=== PATIENT | female | born 1970 | race Caucasian/White ===

== ENCOUNTER → 2022-08-15 | Outpatient (CLI) | payer OTHER, SELFPAY ==
[2022-08-22 15:56] LABS: HPV APTIMA, High Risk Negative (Negative)
== END | disposition home or self-care (01) ==
PROVIDERS: Visit Provider Obstetrics & Gynecology
DX: Z01.419 Encounter for gynecological examination (general) (routine) without abnormal findings (principal)
CPT/HCPCS: 87624; 88175; G0145

== ENCOUNTER → 2023-05-01 | Outpatient (CLI) | payer OTHER, SELFPAY ==
--- NOTE | 2023-05-01 12:54 | US_ITS ---
STUDY: ULTRASOUND OF THE FEMALE PELVIS - COMPLETE REASON FOR EXAM: Female, 53 years old. pelvic pain LMP: Composite TECHNIQUE: Transabdominal and Transvaginal TECHNICAL QUALITY: Adequate. COMPARISON: None. FINDINGS: The uterus is anteverted and is in a midline position. The uterus measures 8.6 x 5.0 x 5.2 cm. Normal uterine cervix. The endometrium measures 5 mm in thickness, and is fluid distended. There is no demonstrated endometrial mass. 2.5 cm isoechoic mass in the posterior body of uterus consistent with an intramural fibroid. Another 2.5 cm isoechoic mass in the anterior fundus of the uterus consistent with an intramural fibroid. I.U.D. - The patient does not have an I.U.D. The right ovary is visualized. The right ovary measures 1.6 x 1.7 x 2.2 cm. There is no right ovarian cyst or ovarian mass. There is no visualized right adnexal mass or complex lesion. There is normal arterial and normal venous vascularity. The left ovary is non-visualized.. There is no fluid in the cul-de-sac. The pre void volume of the bladder was ml. The post void volume of the bladder was ml. Polycystic ovary disease: No. US/Pelvic (Non ) IMPRESSION: 1. Uterine fibroids. 2. Some endometrial fluid. Electronically Signed: Sai Chilel MD at 0:12 EST ,
== END | disposition home or self-care (01) ==
LOC: OPUS 12:52
PROVIDERS: Referring Provider Obstetrics & Gynecology; Visit Provider Obstetrics & Gynecology
DX: R10.2 Pelvic and perineal pain (principal)
CPT/HCPCS: 76830; 76856

== ENCOUNTER 2023-06-02 05:21 | Day surgery (SDC) | payer OTHER, SELFPAY ==
[2023-05-22 13:57] LABS: Hematocrit 42.2 % (37-47); Hemoglobin 14.6 g/dL (12.0-15.0); Mean Corp Hgb Conc 34.6 g/dL (32-36); Mean Corpuscular Hgb 30.3 pg (27.0-32.0); Mean Corpuscular Volume 87.6 fL (81-99); Mean Platelet Vol. 12.1 fl (6.2-12.0); Platelet Count 295 K/mm3 (150-450); RBC Distribution Width CV 12.4 % (11.6-14.6); RBC Distribution Width SD 39.8 fl (35.1-43.9); Red Blood Count 4.82 M/mm3 (4.2-5.4); White Blood Count 8.3 K/mm3 (4.4-11.0)
[2023-06-02] VITALS (16 sets, daily range): BP systolic 109–144; BP diastolic 57–81; PULSE 68–103; RESP 16–18; TEMP 36.1–36.8; O2SAT 94–100; BMI 25.8
--- NOTE | 2023-06-02 05:37 | EKG12_ITS ---
Test Reason : PRE-OP Blood Pressure : / mmHG Vent. Rate : 089 BPM Atrial Rate : 089 BPM P-R Int : 124 ms QRS Dur : 080 ms QT Int : 362 ms P-R-T Axes : 053 031 011 degrees QTc Int : 440 ms Normal sinus rhythm Nonspecific ST and T wave abnormality Abnormal ECG No previous ECGs available Confirmed by OSCAR SPEARS, JASMINA ([id number]), continuity editor JOESPH MIRANDA ([id number]) on 06/09/2023 11:28:14 AM Referred By: Ericka Taylor Confirmed By:JASMINA MOORE MD
[2023-06-02] MEDS: Lactated Ringers 1,000 ML 40 ML IV (06:15)
[2023-06-02 06:34] LABS: Internal QC Validated? YES +Cl - CLEAR BKGD; Pregnancy, Urine Negative Negative
[2023-06-02] MEDS: Acetaminophen 500 MG Tablet 1000 MG PO ×2 (06:40→18:36)
[2023-06-02] MEDS: Phenazopyridine 95 MG Tablet 190 MG PO (06:41)
[2023-06-02] MEDS: Gabapentin 600 MG Tablet PO (06:41)
[2023-06-02] MEDS: Magnesium 1 GM over 15 mins IV (06:55)
--- NOTE | 2023-06-02 07:23 | HP.PCM_ITS ---
History and Physical Date of Admission: 06/02/23 Intake Vital Signs 04/22/2314:33 05/22/2311:41 Height 5 ft 3 in 5 ft 3 in Intake Visit Reasons: hysterectomy Bar Useful Or Busser Required: No Accompanied by: Self Is patient in pain?: No Allergies No Known Allergies Allergy (Verified 05/22/23 11:43) Medications gabapentin 300 mg capsule 300 mg PO QHS #30 caps 08/15/22 [Rx Confirmed 07/14] tizanidine 4 mg capsule 8 mg PO QHS PRN 04/22/23 [History Confirmed 05/22/23] cyclobenzaprine 5 mg tablet 5 mg PO QHS PRN muscle spasm #30 tabs 05/06/23 [Rx Confirmed 05/22/23] diazepam 2 mg tablet (Valium) 2 mg PO QHS PRN anxiety #7 tabs 05/22/23 [Rx Confirmed 05/22/23] lidocaine-prilocaine 2.5 %-2.5 % topical cream 30 g topical ONCE #50 grams 05/22/23 [Rx Confirmed 05/22/23] [facility] Medical History Multiple sclerosis Surgical History S/P cholecystectomy S/P hip arthroscopy S/P wisdom tooth extraction Status post hysteroscopic ablation of endometrium Social History adopted: Yes household members: spouse housing: house number of children: 1 current occupational status: unemployed Smoking Status: Current every day smoker alcohol intake: never substance use type: does not use seatbelt use: always do you feel safe at home: Yes additional social history: -Bhupendra- Self employed HPI hysterectomy Details: RODNEY ALVARADO is a 53 year old who presents for discussion about fibroids causing pressure, back pain, and cramping. She is status post cholecystectomy on 03/22/23 and was found at that time to have an enlarged bulky fibroid uterus on CT but no dimentions were given. 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 ultrasound shows the following: FINDINGS: The uterus is anteverted and is in a midline position. The uterus measures 8.6 x 5.0 x 5.2 cm. Normal uterine cervix. The endometrium measures 5 mm in thickness, and is fluid distended. There is no demonstrated endometrial mass. 2.5 cm isoechoic mass in the posterior body of uterus consistent with an intramural fibroid. Another 2.5 cm isoechoic mass in the anterior fundus of the uterus consistent with an intramural fibroid. I.U.D. - The patient does not have an I.U.D. The right ovary is visualized. The right ovary measures 1.6 x 1.7 x 2.2 cm. There is no right ovarian cyst or ovarian mass. There is no visualized right adnexal mass or complex lesion. There is normal arterial and normal venous vascularity. The left ovary is non-visualized.. There is no fluid in the cul-de-sac. The pre void volume of the bladder was ml. The post void volume of the bladder was ml. Polycystic ovary disease: No. US/Pelvic (Non ) IMPRESSION: 1. Uterine fibroids. 2. Some endometrial fluid. She would like to proceed with hysterectomy. She has undergone laparoscopic surgery in the past and has multiple scars on abdomen and states is ready to have her uterus removed. She is also requesting abdominal wall mole removal at the time of surgery also. History 1 Elective abortions Hx Para 1 Spontaneous abortions Hx # Term Pregnancies Ectopic pregnancies Hx # Pregnancies Multiple births # of living children ROS Const ROS Unobtainable: All systems reviewed & are unremarkable except as noted in H Resp Resp: Reports system reviewed and no additional complaints, except as documented; Denies cough GI GI: Reports as per HPI Psych Psych: Reports system reviewed and no additional complaints, except as documented Exam Const General: cooperative, healthy appearing, comfortable and no acute distress Resp Effort & Inspection: normal respiratory effort Skin General: no rashes or lesions noted Psych Appearance: grossly normal Speech and Movement: speech and movement normal Coding Level of Care Code Off vis,est,level 3 Diagnoses Pelvic pain R10.2 Fibroid uterus D25.9 Status post hysteroscopic ablation of endometrium Z98.890 Multiple sclerosis G35 Assessment and Plan Assessment and Plan (1) Pelvic pain: Status: Acute (2) Fibroid uterus: Status: Acute (3) Status post hysteroscopic ablation of endometrium: Status: Acute Comment: 01/2022 Tarah (4) Multiple sclerosis: Status: Acute Medications: New diazepam (Valium) 2 mg PO QHS PRN 7 tabs 0RF anxiety lidocaine-prilocaine 2.5-2.5 % 30 grams topical ONCE 50 grams 0RF Plan After discussing the patient's diagnosis and treatment plan options, patient wishes to proceed with surgical management. The plan is to proceed with total robotic hysterectomy, biltaral salpingectomy, cystoscopy. I have discussed with the patient the risks, benefits, and alternatives of the procedure which include but are not limited to risks of anesthesia, bleeding, infection, possible damage to bowel, bladder, or surrounding vasculature which could lead to additional surgery to evaluate any complications. Patient agrees to procedure and wishes to proceed. ACOG/uptodate references given for additional information regarding procedure.
--- NOTE | 2023-06-02 07:24 | DCINST_ITS ---
Discharge Instructions Diet Discharge Diet: No restrictions Activity May resume sexual activity in: 6 weeks Weight Bearing Status: Full weight bearing Dressing / Incision Call your doctor if your incision/area has: Continuous Slow Oozing, Sudden Increased Bleeding, Increased Pain/ Swelling, Increased Redness and Foul Smelling Discharge Call your doctor if you observe: Fever of 101 or Higher, Using more than 1 pad per hour, Shortness of breath, Chest pain and Uncontrolled pain Suture Line Care: Avoid Pulling/Pushing and Avoid Pinching/Bending Remove Dressing in: 1 week (if present) Cleanse incision/area with: Soap & Water and Keep Dressing Clean & Dry Follow Up Care Please Follow Up With: Ericka Taylor DO When: Call to make an appointment with your doctor for a postop visit in 2 and 6 weeks Test Results: Test results from this visit will be discussed in further detail at your follow- up appointment, if applicable. Discharge Plan Admission Primary Reason for Your Visit: hysterectomy Attending Provider: Ericka Taylor Primary Care Provider: Care PhysicianKhushi Primary Discharge Orders/Prescriptions Prescriptions: New oxycodone-acetaminophen [Percocet] 5-325 mg tablet 1 tab PO Q4H PRN (Reason: pain) 7 Days Qty: 30 0RF Rx Instructions: 1-2 tabs q 4 hrs as needed for pain naproxen 500 mg tablet 500 mg PO BID PRN (Reason: pain) Qty: 40 0RF Continued tizanidine 4 mg capsule 8 mg PO QHS PRN (Reason: muscle spasticity) diazepam [Valium] 2 mg tablet 2 mg PO QHS PRN (Reason: anxiety) Qty: 7 0RF lidocaine-prilocaine 2.5-2.5 % cream 30 g topical ONCE Qty: 50 0RF baclofen 10 mg tablet 10 mg PO BID Patient Comments: Take 1 tablet by mouth 2 times daily. cyclobenzaprine 5 mg tablet 5 mg PO QHS PRN (Reason: muscle spasm) Qty: 30 0RF Referrals / Follow Up: Care PhysicianKhushi Primary [Primary Care Provider] - Disposition Disposition (needs filled in before D/C Order can be placed): Home, Self Care
--- NOTE | 2023-06-02 07:30 | HYST_PTH ---
PATIENT: RODNEY CABALLERO LOC: [facility] U#:[id number] AGE/SX: 53/F ROOM: RE06/02/[address]: Dr. Ericka Taylor DO : 1970 BED: DIS: 06/03/2023 SPEC #: [id number] RECD: 06/02/23 09:46 STATUS: TOI REED #: [id number] LACHO: 06/02/23 07:[address]: Ericka Taylor DEPT: SURGICAL PATHOLOGY RECD BY: Rita Borjas ENTERED: 06/02/23 10:09 SP TYPE: HYSTERECT OTHR DR: No Primary Care Phys Tissues: A - Skin of abdomen, NOS B - Uterus, NOS Procedures: Surgery Specimen Level IV Surgery Specimen Level V HEADER OPERATION: ERAS, Lap robotic hysterectomy, bilateral salpingectomy PRE-OP DIAGNOSIS: Uterine fibroids, some endometrial fluid, abdominal nevus TISSUE SUBMITTED: A - Abdominal nevus, B - Uterus, cervix and bilateral fallopian tubes MICROSCOPIC DIAGNOSIS A. Abdominal nevus, biopsy: Intradermal nevus x2. B. Uterus, cervix, bilateral fallopian tubes, hysterectomy and bilateral salpingectomy: Cervix - chronic cystic cervicitis. Endometrium - changes consistent with status post endometrial ablation. Myometrium - intramural and subserosal leiomyomas (largest measuring 2.5 cm in greatest dimension. - Focal adenomyosis. Bilateral fallopian tubes - no pathologic diagnosis. Left paratubal cyst. SJ:leopoldo 06/03/2023 MICROSCOPIC DESCRIPTION Slides are reviewed. GROSS DESCRIPTION A - Received in fixative is one container labeled with the patient's name and designated abdominal nevus. The specimen consists of a piece of wright-white skin measuring 0.5 x 0.5 x 0.3 cm. Also present in the container is a shave biopsy of wright-white skin measuring 0.5 x 0.3 x 0.1 cm. Both pieces are inked and bisected. The entire specimen is submitted in two cassettes. Cassette 2 contains the shave biopsy piece. B - Received in fixative is one container labeled with the patient's name and designated uterus, cervix, bilateral fallopian tubes. The specimen consists of a hysterectomy specimen consisting of uterus with cervix, attached bilateral fallopian tubes. The uterus with cervix weighs 98 gm and measures 9.0 x 5.5 x 5.0 cm. The serosal surface is smooth and glistening. A minute subserosal nodule is noted measuring 0.3 cm in greatest dimension. The ectocervical mucosa is unremarkable. The external os is oval and patulous in contour. The endocervical canal measures 3.0 cm in length and the endocervical mucosa is unremarkable. Sections of cervix reveal a few cysts filled with mucoid material. The narrow endometrial cavity measures 4.5 cm in length and 0.5 cm in width. Focal area of fibrosis is noted. The endometrium is wright and measures 0.1 cm in thickness. Sections of the myometrial wall reveals multiple intramural nodular masses. The largest mass measures 2.5 cm in greatest dimension. Sections of these masses reveal wright whorled cut surfaces without areas of hemorrhage, necrosis or cystic degeneration. The uninvolved uterine wall measures up to 2.5 cm in thickness. The right fallopian tube measures 7.0 cm in length and up to 1.0 cm in diameter. The fimbrial end is identified. Sections reveal unremarkable cut surfaces. The left fallopian tube is similar appearance to right and measures 6.5 cm in length and 0.6 cm in diameter. A paratubal cyst is also noted measuring 1.5 cm in greatest dimension. The cyst is filled with clear fluid. [employer] sections are submitted in ten cassettes as follows: 1 - anterior cervix, 2??posterior cervix, 3 & 4 - anterior uterine wall, 5 & 6 - posterior uterine wall, 7 - smaller intramural nodular masses and a minute subserosal mass, 8 & 9 - right fallopian tube, 10 - left fallopian tube and paratubal cyst. / CHRISS:leopoldo 06/02/2023 TC:1 CPT: 59728, 39712
[2023-06-02] MEDS: Cefazolin 2 GM in 0.9% Normal Saline (100mL Bag) 100 ML IV (07:37)
[2023-06-02] MEDS: Bupivacaine 0.25% 30 ML Vial (08:58)
--- NOTE | 2023-06-02 09:15 | OP.PCM_ITS ---
Problems Associated Problem List Diagnoses (1) Pelvic pain: (2) Fibroid uterus: (3) Status post hysteroscopic ablation of endometrium: (4) Multiple sclerosis: Report of Operation Date of Procedure: 06/02/23 Pre-Operative Diagnosis: 53 y/o with chronic pelvic pain, fibroid uterus, and MS. Post-Operative Diagnosis: 53 y/o with chronic pelvi pain, fibroid uterus, and MS Surgery/Procedure Performed:: Total robotic hysterectomy, bilateral salpingectomy, Abdominal wall nevus removal, cystoscopy Description of Surgical Findings:: minor adhesions of descending colon epiploica to the left round ligament. Normal ovaries and fallopian tubes. slightly enlarged fibroid uterus. Surgeon: Ericka Taylor carbon sequestration plant manager: Bradley Gerard Type of Anesthesia: General Specimen's removed: abdominal wall nevus, uterus, bilateral fallopian tubes and cervix Drains: none Estimated Blood Loss (mL): 25cc Description of Procedure: Start time: 07:56 end time: 09:22 Findings: 10 cm size uterus, normal appearing ovaries and tubes. On exploration of the abdominal cavity the uterus, adnexa, bowel, and liver were found to be normal. Cystoscopy showed no evidence of leaking at approximately 250 cc of n ormal saline, positive ureteral orifices and jet flow are seen and no suture material was appreciated in the bladder. Specimens removed: Uterus and cervix, Bilateral tubes and abdominal wall nevus Reason for surgery: This is a 53-year-old G1, P1 who presented to my office with history of pelvic pain and fibroid uterus the planned procedure is for a robotic hysterectomy the risks benefits and alternatives were discussed with the patient the patient had a clear understanding of the procedure and a consent form was signed. Procedure: The patient was placed in the dorsal low lithotomy position and prepped and draped in the normal sterile fashion both abdominally and in the perineum. Her legs were placed in stirrups a Levy catheter was inserted into the urethra without difficulty. A weighted speculum was placed in the vagina and a single- tooth tenaculum was used to grasp the anterior lip of the cervix. An advincula uterine manipulator was inserted through the cervix without complication. It was then tied into place at the 2 and 10:00 locations on the cervix. Gloves were changed and attention was turned towards the abdomen. Approximately 23 cm above the pubic symphysis in the midline, and after Marcaine injection, a 8 mm incision was made. An 8 mm trocar was inserted through the laparoscope, then inserted into the abdomen under direct visualization using the laparoscope. Good abdominal placement was noted and no complications were appreciated. An air seal device was utilized to create pneumoperitoneum. At 12 cm lateral to the midline on the left and right sides 8 mm accessory ports were placed. Next a left upper quadrant 8 mm assistant production editor port site was placed. The patient was placed in steep Trendelenburg position. The robot was docked. The hysterectomy was initiated first by taking down adhesions of the epiploica of the descending colon to the left round ligament. the round ligament on each side using the vessel sealer device. The peritoneum between the round ligament and the IP ligament was opened using electrocautery and extended the length of the IP ligament. The IP ligament was then taken down using the vessel sealer device. These areas were freed without complication the broad ligament was then and taken down using the vessel sealer device. Next the bladder flap was taken down without complication. This was done using monopolar cautery to the level of the cervical vaginal junction. After the bladder flap was created, uterine vessels were then isolated and cauterized using the vessel sealer device and EndoShears. At this point the uterine vessels were taken down further starting from the ascending branch, dissecting along the edges of the cervix to the level of the cervical vaginal junction with hemostasis appreciated. The cervical vaginal junction was then using monopolar cautery in a circumferential pattern across the superior aspect of the cervix. The specimen was delivered through the vagina and sent to pathology. The remaining vaginal cuff was then closed using a V lock suture. This was performed in a running technique. Excellent hemostasis was obtained and good closure was noted. Irrigation was then performed. All operative sites were noted to be hemostatic. A cystoscopy was performed with a 70 degree cystoscope through the urethra into the bladder without complication. The bladder was instilled with approximately 250 cc of normal saline. Intraoperative images were made. Ureteral orifices and jets were identified. No suture material was appreciated in the bladder. The bladder was then drained and cystoscope was removed. The abdominal cavity was again examined using the laparoscope after the robot was undocked. All operative sites were noted to be hemostatic. The trochars were removed under direct visualization without complication and pneumoperitoneum was reduced. At this point the skin was then closed using 4-0 Monocryl subcuticular stitch and sealed with surgical glue. The patient tolerated the procedure well sponge lap and needle counts were correct x2 the patient was taken to the recovery room in stable condition. Procedure Start Time: 07:56 Procedure Stop Time: 09:22 Complications none Admit VTE Documentation VTE Present on Admission: Yes VTE Mechan Device Prophylaxis: SCD's VTE Pharm Prophylaxis ordered?: No Reason prophylaxis not ordered:: Adverse Reaction to Drug Multi Select Codes Urinary/Genital Urinary/Genital CPT Codes: 40402 TLH+BS/O <250gr uterus
[2023-06-02] MEDS: Oxycodone/Apap 5/325 Tablet PO (12:12)
[2023-06-02] MEDS: HYDROmorphone 1 MG/ML Syringe 0.2 MG IV (15:57)
[2023-06-02] MEDS: Lactated Ringers 1,000 ML 100 ML IV (15:59)
[2023-06-02] MEDS: Ketorolac 30 MG/ML Syringe IV (16:09)
[2023-06-02] MEDS: oxyCODONE 5 MG Tablet PO (20:18)
[2023-06-02] MEDS: Docusate Sodium 100 MG Capsule PO (20:39)
[2023-06-02] MEDS: Ondansetron ODT 4 MG Tablet PO (20:39)
[2023-06-03] VITALS (7 sets, daily range): BP systolic 107–143; BP diastolic 54–91; PULSE 67–83; RESP 18; TEMP 36.6–37; O2SAT 94–100
[2023-06-03] MEDS: Ketorolac 30 MG/ML Syringe IV ×3 (00:21→12:25)
[2023-06-03] MEDS: Acetaminophen 500 MG Tablet 1000 MG PO ×3 (00:22→12:25)
[2023-06-03] MEDS: oxyCODONE 5 MG Tablet PO ×3 (02:41→16:00)
[2023-06-03 08:34] LABS: Hematocrit 46.8 % (37-47); Hemoglobin 15.2 g/dL (12.0-15.0); Mean Corp Hgb Conc 32.5 g/dL (32-36); Mean Corpuscular Volume 92.3 fL (81-99); Mean Platelet Vol. 11.4 fl (6.2-12.0); Platelet Count 230 K/mm3 (150-450); RBC Distribution Width CV 12.8 % (11.6-14.6); RBC Distribution Width SD 43.1 fl (35.1-43.9); Red Blood Count 5.07 M/mm3 (4.2-5.4); White Blood Count 7.9 K/mm3 (4.4-11.0)
--- NOTE | 2023-06-03 08:36 | PN.OBGYN_ITS ---
Subjective Subjective Patient is laying in bed. The lab is in room attempting to draw her morning labs with little success. She denies vaginal bleeding but states that she wants to stay another day because she does not have anyone at home that will take care of her. Her was with her yesterday and was very attentive and asked irwin ropriate questions. She has an adult son at home. Her garcia remains in place overnight for urinary retention. Objective Data Objective Data Vital Signs: Vital Signs Temp Pulse Resp BP Pulse Ox O2 Del Method O2 Flow Rate 98.6 F 80 18 143/66 H 100 Room Air 2 06/03/23 08:22 06/03/23 08:22 06/03/23 08:22 06/03/23 08:22 06/03/23 08:22 06/03/23 08:22 06/02/23 11:15 Oxygen Flow Rate (L/min) 2 Oxygen Delivery Method Room Air Weight: 145 lb 15.136 oz Body Mass Index (BMI) 25.8 Intake & Output: Intake and Output for Last 24 Hours 06/01/23 06/02/23 06/03/23 23:59 23:59 23:59 Intake Total 1448.67 / 1448.67 Output Total 1650 / 2350 2900 / 2900 Balance -201.33 / -901.33 -2900 / -2900 Lab / Micro Data 06/03/23 08:15 Labs: Laboratory Results - last 24 hr 06/03/23 08:15: WBC 7.9, RBC 5.07, Hgb 15.2 H, Hct 46.8, MCV 92.3, MCH 30.0, MCHC 32.5, RDW Std Deviation 43.1, RDW Coeff of Leonarda 12.8, Plt Count 230, MPV 11.4 ROS Constitutional Constitutional: Reports systems reviewed and no addt'l complaints, except as documented Cardiovascular Cardiovascular: Denies chest pain, dizziness, dyspnea or irregular heart rhythm Respiratory/Chest Respiratory/Chest: Denies cough, pain on inspiration or shortness of breath at rest Gastrointestinal Gastrointestinal: Denies abdominal pain, nausea or vomiting Genitourinary Genitourinary: Denies burning urination Musculoskeletal Musculoskeletal: Denies muscle cramps, muscle spasms or muscle weakness Neurologic Neurologic: Denies confusion, dizziness, headache(s) or lack of coordination Psychiatric Psychiatric: Denies anxiety, behavioral changes or depression Physical Exam HEENT normocephalic Resp normal respiratory effort and normal air movement GI soft to palpation, non-tender and non-distended Rectal Exam: other Other Details: Incision is clean, dry, and intact no CVA tenderness Extremity normal to inspection General Extremity: edema bilateral (trace ) Assessment & Plan (1) Status post hysterectomy: (2) Pelvic pain: (3) Multiple sclerosis: PLAN: Plan patient is s/p uncomplicated robotic hysterectomy- POD 1 1. routine ERAS protocol postop care- increase ambulation, encourage oral intake and oral control of pain. lovenox and scds for dvt prophylaxis, patient stable for discharge to home but patient is reluctant. Will wait for morning labs and decide 2. remove catheter now 3. encouraged to drink more water. Her pyridium was given 24 hours ago and is still showing a dark orange color in cath bag, telling me she needs more fluids.
[2023-06-03] MEDS: Enoxaparin 40 MG/0.4 ML Syringe SC (10:40)
[2023-06-03] MEDS: Docusate Sodium 100 MG Capsule PO (10:40)
--- NOTE | 2023-06-03 15:29 | CASEMGMT ---
Social Work SW met with pt to discuss advance directives.? Pt confirms she has completed a living will and health care POA naming her Bhupendra Bell. Pt notified that documents are not on file at [facility] and SW requested they be brought in for scanning into the EMR.? BRUNA Nichols
== END 2023-06-03 16:19 | disposition home or self-care (01) ==
LOC: SDC 05:22 → AC 05:22 → MS3 06-03 14:44
PROVIDERS: Anesthesiology; Obstetrics & Gynecology; Referring Provider Obstetrics & Gynecology; Visit Provider Obstetrics & Gynecology
PROC: 0UT90ZZ Resection of Uterus, Open Approach (ICD-10-PCS; CPT 58571; principal; 2023-06-02 07:10)
DX: D25.1 Intramural leiomyoma of uterus (principal); G35 Multiple sclerosis; D25.2 Subserosal leiomyoma of uterus; N72 Inflammatory disease of cervix uteri; N83.8 Other noninflammatory disorders of ovary, fallopian tube and broad ligament; G89.29 Other chronic pain; R10.2 Pelvic and perineal pain; F17.200 Nicotine dependence, unspecified, uncomplicated
CPT/HCPCS: 58571; S2900; 00840; 36415; 81025; 83735; 85027; 86850; 86900; 86901; 88305; 88307; 93005; 94668; 99252; J7120; G0463; J2405; J3475

== ENCOUNTER 2023-06-17 12:17 | Day surgery (SDC) | payer OTHER, SELFPAY ==
[2023-06-17] VITALS (9 sets, daily range): BP systolic 102–144; BP diastolic 53–103; PULSE 57–99; RESP 16; TEMP 36.1–36.8; O2SAT 97–100
--- NOTE | 2023-06-17 12:39 | PCM.HP.OB ---
HPI - General HPI Narrative RODNEY ALVARADO, is a 53 F who presents to my office for a routine 2 week post op TRH visit and stated to me that when she got to the waiting room she started bleeding. She removed her pants and blood was found to be drenched in her underwear, leaking down her leg and onto the floor. She was immediately examined with a hysterectomy and there was noted to be active bleeding from the left side of the cuff without an obvious dehiscence. The decision was made to send her to the OR [facility] for exploratory laparoscopy and repair of the active bleed. PFSH PFSH Medical History Fibroid uterus Multiple sclerosis Non-smoker Pelvic pain Wears glasses Home Medications tizanidine 4 mg capsule 8 mg PO QHS PRN muscle spasticity 04/22/23 [History Last Taken Unknown] cyclobenzaprine 5 mg tablet 5 mg PO QHS PRN muscle spasm #30 tabs 05/06/23 [Rx Last Taken Unknown] diazepam 2 mg tablet (Valium) 2 mg PO QHS PRN anxiety #7 tabs 05/22/23 [Rx Last Taken Unknown] lidocaine-prilocaine 2.5 %-2.5 % topical cream 30 g topical ONCE #50 grams 05/22/23 [Rx Last Taken Unknown] baclofen 10 mg tablet 10 mg PO BID 05/26/23 [History Last Taken Unknown] naproxen 500 mg tablet 500 mg PO BID PRN pain #40 tabs 06/02/23 [Rx Last Taken Unknown] oxycodone-acetaminophen 5 mg-325 mg tablet (Percocet) 1 tab PO Q4H PRN pain 7 days #30 tabs 06/02/23 [Rx Last Taken Unknown] Allergy/AdvReac Type Severity Reaction Status Date / Time No Known Allergies Allergy Verified 06/17/23 11:40 Surgical History S/P cholecystectomy S/P hip arthroscopy S/P wisdom tooth extraction Status post hysterectomy Status post hysteroscopic ablation of endometrium Social History adopted: Yes household members: spouse housing: house number of children: 1 current occupational status: unemployed Smoking Status: Never smoker alcohol intake: never substance use type: does not use seatbelt use: always do you feel safe at home: Yes additional social history: -[employer]- Self employed History 1 Elective abortions Hx Para 1 Spontaneous abortions Hx # Term Pregnancies Ectopic pregnancies Hx # Pregnancies Multiple births # of living children ROS Constitutional Constitutional: Reports systems reviewed and no addt'l complaints, except as documented Gastrointestinal Gastrointestinal: Denies bloating, constipation, cramping, diarrhea, nausea or vomiting Genitourinary Genitourinary: Denies difficulty urinating or flank pain Vital Signs Vital Signs Vital Signs: 06/17/23 12:32 06/17/23 12:32 Temperature 97.7 F L Temperature Source Temporal Pulse Rate 82 Respiratory Rate 16 Respiratory Pattern Normal Blood Pressure 144/103 H Blood Pressure Mean 116 Blood Pressure Source Monitor Blood Pressure Position Semi-Fowlers Blood Pressure Location Left Arm Pulse Ox 100 Oxygen Delivery Method Room Air Physical Exam Const alert, oriented x3 and no apparent distress General Appearance: cooperative and comfortable Resp normal respiratory effort Cardio regular rate GI normal to inspection, nondistended, normoactive bowel sounds Palpation: soft Rectal Exam: other Other Details: non-tender. Incision is clean, dry, and intact. no CVA tenderness Speculum Exam - Vagina: other bright red blood running from the left side of the cuff. no opening appreciated in the cuff. only bright red blood running through and pooling in the speculum Labs Labs Labs: Blood Type O POSITIVE Antibody Screen NEGATIVE Hct 46.8 % (37-47) Hgb 15.2 g/dL (12.0-15.0) H Pap Smear Negative Assessment & Plan (1) Postoperative bleeding from incision: COMMENT: plan for emergency surgery now to repair the cuff PLAN: After discussing the patient's diagnosis and treatment plan options, patient wishes to proceed with surgical management. I have discussed with the patient the risks, benefits, and alternatives of the procedure which include but are not limited to risks of anesthesia, bleeding, infection, possible damage to bowel, bladder, or surrounding vasculature which could lead to additional surgery to evaluate any complications. Patient agrees to procedure and wishes to proceed. type and match now cbc stat
[2023-06-17 12:55] LABS: Hematocrit 38.3 % (37-47); Hemoglobin 13.7 g/dL (12.0-15.0); Mean Corp Hgb Conc 35.8 g/dL (32-36); Mean Corpuscular Hgb 31.2 pg (27.0-32.0); Mean Corpuscular Volume 87.2 fL (81-99); Mean Platelet Vol. 11.3 fl (6.2-12.0); Platelet Count 339 K/mm3 (150-450); RBC Distribution Width CV 12.6 % (11.6-14.6); RBC Distribution Width SD 40.3 fl (35.1-43.9); Red Blood Count 4.39 M/mm3 (4.2-5.4); White Blood Count 8.6 K/mm3 (4.4-11.0)
[2023-06-17] MEDS: Bupivacaine 0.25% 30 ML Vial (14:11)
--- NOTE | 2023-06-17 14:15 | OP.PCM_ITS ---
Problems Associated Problem List Diagnoses (1) Postoperative bleeding from incision: Report of Operation Date of Procedure: 06/17/23 Pre-Operative Diagnosis: vaginal cuff hemorrhage Post-Operative Diagnosis: vaginal cuff hemorrhage Surgery/Procedure Performed:: diagnostic laparoscopy, lysis of adhesions, application of hemostatic agent, repair of vaginal cuff bleed Description of Surgical Findings:: oozing of blood from the cuff and reciprocal site in the internal vaginal cuff. adhesions of epiploica to cuff, adhesions of omentum to right upper quadrant Surgeon: Ericka Taylor kraft mill operator: Jess Yepez Type of Anesthesia: General Anesthesiologist: Bal Emmanuel Specimen's removed: none Drains: none Estimated Blood Loss (mL): 20cc Description of Procedure: Patient was brought to the operating room and general anesthesia was found to be adequate. She was prepped and draped in the normal sterile fashion. Her legs were placed in stirrups and a weighted speculum was placed in the vagina. There was noted to be oozing and bleeding from the left aspect of the vaginal cuff. A sponge stick was placed in the vagina. Gloves were changed. Attention was t urned towards the abdomen. A supraumbilical incision was made with a scalpel and a 5 mm trocar was inserted into the abdomen under direct visualization. CO2 gas was used to insufflate the abdomen. Patient was placed in Trendelenburg position. The cuff was noted to be intact internally however there was epiploica of the descending colon adherent to the cuff this was gently pulled away with a atraumatic grasper. There was noted to be oozing of blood at the edge of the tissue that was adjacent to the vaginal cuff bleed. A blast was applied to this area and hemostasis was achieved. There were also adhesions adherent to the right upper quadrant of the omentum this was cauterized and cut using the LigaSure device. Hemoblast was applied to this area as well and excellent hemostasis was noted. The vaginal cuff was then oversewn using 0 Vicryl suture in a [id number] pattern using 3 separate suture. Excellent hemostasis was noted. At this time the procedure was ended sponge lap and needle counts were correct x 2 and she is being brought to the recovery room in stable condition. Procedure Start Time: 13:13 Procedure Stop Time: 14:12 Complications None Admit VTE Documentation VTE Present on Admission: No VTE Mechan Device Prophylaxis: SCD's VTE Pharm Prophylaxis ordered?: No Multi Select Codes Urinary/Genital Urinary/Genital CPT Codes: 95730 Lysis of adhesions, laproscopic and Other Procedure See Report
[2023-06-17] MEDS: Lactated Ringers 1,000 ML 15 ML IV (15:08)
[2023-06-17] MEDS: Oxycodone/Apap 5/325 Tablet PO ×2 (15:37→16:33)
--- NOTE | 2023-06-17 16:03 | DCINST_ITS ---
Discharge Instructions Diet Discharge Diet: No restrictions Activity Discharge Activity: Return to Normal Activity, May Not Drive (for two weeks or while taking narcotic pain medications.), May Shower and May Take a Tub Bath (in 7 days) May resume sexual activity in: 1 week Weight Bearing Status: Full weight bearing Dressing / Incision Call your doctor if you observe: Using more than 1 pad per hour, Shortness of breath, Chest pain and Uncontrolled pain Suture Line Care: Avoid Pulling/Pushing and Avoid Pinching/Bending Remove Dressing in: 1 week (if present) Cleanse incision/area with: Soap & Water and Keep Dressing Clean & Dry Follow Up Care Please Follow Up With: Ericka Taylor DO When: Call to make an appointment with your doctor for a follow up incision check in 1-2 weeks. Test Results: Test results from this visit will be discussed in further detail at your follow- up appointment, if applicable. Discharge Plan Admission Primary Reason for Your Visit: laparoscopy and repair of vaginal bleed Attending Provider: Ericka Taylor Primary Care Provider: Care Physician,Khushi Primary Discharge Orders/Prescriptions Prescriptions: New oxycodone-acetaminophen [Percocet] 5-325 mg tablet 1 tab PO Q4H PRN (Reason: pain) 7 Days Qty: 30 0RF Rx Instructions: 1-2 tabs q 4 hrs as needed for pain ibuprofen 600 mg tablet 600 mg PO Q6H PRN (Reason: pain (scale score 4-6)) Qty: 30 0RF No Action tizanidine 4 mg capsule 8 mg PO QHS PRN (Reason: muscle spasticity) diazepam [Valium] 2 mg tablet 2 mg PO QHS PRN (Reason: anxiety) Qty: 7 0RF lidocaine-prilocaine 2.5-2.5 % cream 30 g topical ONCE Qty: 50 0RF baclofen 10 mg tablet 10 mg PO BID Patient Comments: Take 1 tablet by mouth 2 times daily. oxycodone-acetaminophen [Percocet] 5-325 mg tablet 1 tab PO Q4H PRN (Reason: pain) 7 Days Qty: 30 0RF Rx Instructions: 1-2 tabs q 4 hrs as needed for pain naproxen 500 mg tablet 500 mg PO BID PRN (Reason: pain) Qty: 40 0RF cyclobenzaprine 5 mg tablet 5 mg PO QHS PRN (Reason: muscle spasm) Qty: 30 0RF Referrals / Follow Up: Care Physician,No Primary [Primary Care Provider] - Disposition Disposition (needs filled in before D/C Order can be placed): Home, Self Care
== END 2023-06-17 17:25 | disposition home or self-care (01) ==
LOC: SDC 12:20 → AC 12:20
PROVIDERS: Referring Provider Obstetrics & Gynecology; Visit Provider Obstetrics & Gynecology
PROC: (CPT 49320; principal; 2023-06-17 11:15)
DX: N93.9 Abnormal uterine and vaginal bleeding, unspecified (principal); G35 Multiple sclerosis
CPT/HCPCS: 58660; 00840; 85027; 86850; 86900; 86901; 86920; 86922; J7120; J2405

== ENCOUNTER → 2023-11-19 | Outpatient (CLI) | payer OTHER, SELFPAY ==
[2023-11-19 17:08] LABS: Absolute Lymphocyte Count 1.61 X10^3/uL (0.83-4.51); Absolute Neutrophil Count 4.8 X10^3/uL (2.0-7.7); Basophil# 0.08 X10^3/uL; Basophil% 1.1 % (0-1); Eosinophil# 0.14 X10^3/uL; Hematocrit 39.9 % (37-47); Hemoglobin 13.8 g/dL (12.0-15.0); Lymphocyte # 1.61 X10^3/ul (0.83-4.51); Lymphocyte % 22.5 % (19-41); Mean Corp Hgb Conc 34.6 g/dL (32-36); Mean Corpuscular Hgb 30.7 pg (27.0-32.0); Mean Corpuscular Volume 88.7 fL (81-99); Mean Platelet Vol. 11.6 fl (6.2-12.0); Monocyte# 0.48 X10^3/uL; Monocyte% 6.7 % (0-10); NRBC Flagged by Analyzer 0 % (0-5); Neutrophil # 4.81 X10^3/uL (2.7-7.7); Neutrophil % 67.1 % (47-70); Platelet Count 279 K/mm3 (150-450); RBC Distribution Width CV 12.8 % (11.6-14.6); RBC Distribution Width SD 41.7 fl (35.1-43.9); White Blood Count 7.2 K/mm3 (4.4-11.0)
[2023-11-19 17:09] LABS: POSITIVE COUNT NO; POSITIVE DIFFERENTIAL NO; POSITIVE MORPHOLOGY NO
[2023-11-19 17:55] LABS: Vitamin B12 515 pg/mL (211-911); Vitamin D,25 Hydroxy 20.1 ng/mL
[2023-11-19 18:01] LABS: Estradiol 14.5 pg/mL; Follicle Stimulating Hormone 89.6 mIU/mL; Luteinizing Hormone 44.3 mIU/mL; Thyroid Stim Hormone (TSH) 0.81 uIU/mL (0.358-3.74)
== END | disposition home or self-care (01) ==
LOC: LAB 16:17
PROVIDERS: Referring Provider Obstetrics & Gynecology; Visit Provider Obstetrics & Gynecology
DX: Z13.21 Encounter for screening for nutritional disorder (principal); R53.83 Other fatigue; L65.9 Nonscarring hair loss, unspecified
CPT/HCPCS: 36415; 82306; 82607; 82670; 83001; 83002; 84443; 85025

== ENCOUNTER → 2023-12-29 | Outpatient (CLI) | payer OTHER, SELFPAY ==
--- NOTE | 2023-12-29 11:07 | CT_ITS ---
STUDY: CT ABDOMEN AND PELVIS WITH CONTRAST REASON FOR EXAM: Female, 53 years old. pelvic pain RADIATION DOSAGE (If Supplied By Facility): CTDIvol = ( 15.64 ) mGy, DLP = ( 590.94 ) mGycm TECHNIQUE: Transaxial images were obtained from the dome of the diaphragm to the symphysis pubis with oral contrast. Oral and amp; IV Gastrografin and amp; 100mL Isovue-370 was administered. Sagittal and coronal images were reconstructed. Individualized dose optimization techniques were used for this CT. COMPARISON: None. FINDINGS: The visualized lung bases are unremarkable. The visualized portions of the heart are within normal limits. Normal liver. There are surgical clips in the gallbladder fossa consistent with a prior cholecystectomy. Normal spleen. Normal pancreas. Normal bilateral adrenal glands. Normal right kidney. 1.5 cm cyst upper pole left kidney. Normal visualized stomach. Normal small intestine. Normal colon. The appendix is visualized and appears normal. Normal abdominal aorta. Normal inferior vena cava. Normal retroperitoneum. Normal urinary bladder. There is a small umbilical hernia containing fat. Normal osseous structures. CT/Abdomen/Pelvis WITH Contrast IMPRESSION: Normal enhanced CT of the abdomen and pelvis. Electronically Signed: Sai Chilel MD at 15:21 EDT ,
== END | disposition home or self-care (01) ==
PROVIDERS: Referring Provider Obstetrics & Gynecology; Visit Provider Obstetrics & Gynecology
DX: R10.11 Right upper quadrant pain (principal)
CPT/HCPCS: 74177; Q9967

== ENCOUNTER → 2024-10-25 | Outpatient (CLI) | payer BC, SELFPAY ==
--- NOTE | 2024-10-25 13:00 | BI_ITS ---
EXAM: SCRN MAMM (CAD)W/MARIAM BILAT 10/25/2024 CLINICAL HISTORY: F, Age 54 y/o , SCREENING FOR BREAST CANCER TECHNIQUE: Bilateral screening digital breast tomosynthesis with 2D and 3D images. Computer aided detection. COMPARISON: Prior exam(s) dated 04/28/2017, 04/20/2017, 12/05/2013. FINDINGS: TISSUE DENSITY: The breast tissue is heterogenously dense, which may obscure small masses. The mammogram demonstrates that the patient has dense breasts. Supplemental screening with whole breast ultrasound or MRI may be considered for further evaluation. Bilateral Breast Mammographic Findings: No significant masses, calcifications or other abnormalities are identified. BI/SCRN MAMM (CAD)W/MARIAM BILAT IMPRESSION: Right Breast: BIRADS 1 NEGATIVE. Left Breast: BIRADS 1 NEGATIVE. OVERALL FINAL ASSESSMENT: BIRADS 1 NEGATIVE. RECOMMENDATION: Routine annual follow-up in 1 Year A letter with findings and recommendations will be mailed to the patient. Reading Location: [id number]
[2024-10-25 15:34] LABS: Absolute Neutrophil Count 6.3 X10^3/uL (2.0-7.7); Basophil# 0.06 X10^3/uL; Basophil% 0.7 % (0-1); Eosinophil# 0.14 X10^3/uL; Eosinophils% 1.6 % (0-5); Hematocrit 42.9 % (37-47); Hemoglobin 14.7 g/dL (12.0-15.0); Lymphocyte % 18.5 % (19-41); Mean Corp Hgb Conc 34.3 g/dL (32-36); Mean Corpuscular Hgb 30.4 pg (27.0-32.0); Mean Corpuscular Volume 88.6 fL (81-99); Mean Platelet Vol. 12.1 fl (6.2-12.0); Monocyte# 0.54 X10^3/uL; Monocyte% 6.2 % (0-10); NRBC Flagged by Analyzer 0 % (0-5); Neutrophil # 6.28 X10^3/uL (2.7-7.7); Neutrophil % 72.7 % (47-70); Platelet Count 310 K/mm3 (150-450); RBC Distribution Width CV 12.7 % (11.6-14.6); RBC Distribution Width SD 41.2 fl (35.1-43.9); Red Blood Count 4.84 M/mm3 (4.2-5.4); White Blood Count 8.7 K/mm3 (4.4-11.0)
[2024-10-25 17:55] LABS: ALB/GLOB Ratio 1.5 RATIO (0.9-2.4); AST(SGOT) 23 U/L (<=31); Alanine Aminotransfer ALT/SGPT 15 U/L (<=34); Alkaline Phosphatase 125 U/L (35-104); Anion Gap 18 (5-15); BUN 15 mg/dL (4-19); BUN/Creat Ratio 15.6 RATIO (10-20); Calcium,Total 10.1 mg/dL (7.6-11.0); Chloride 101 mmol/L (98-108); Creatinine, Serum 0.98 mg/dL (0.70-1.20); EST Glomerular Filtration Rate 68 (>60); Estradiol 61.3 pg/mL; Globulin 3.3 g/dL (2.2-4.2); Glucose 104 mg/dL (70-99); Potassium 3.4 mmol/L (3.3-5.1); Protein, Total 8.3 g/dL (5.9-8.4); Sodium Level 139 mmol/L (133-145); Total Bilirubin 1.14 mg/dL (0.00-1.30); Vitamin D,25 Hydroxy 23.5 ng/mL (30-100)
[2024-10-27 04:07] LABS: PROGESTERONE 0.1 ng/mL (.)
== END | disposition home or self-care (01) ==
PROVIDERS: Referring Provider Obstetrics & Gynecology; Visit Provider Obstetrics & Gynecology
DX: Z12.31 Encounter for screening mammogram for malignant neoplasm of breast (principal); G35 Multiple sclerosis; L65.9 Nonscarring hair loss, unspecified; R53.83 Other fatigue; R63.5 Abnormal weight gain
CPT/HCPCS: 36415; 77063; 77067; 80053; 82306; 82670; 84144; 84439; 84443; 85025